=== PATIENT | male | born 1985 | race Caucasian/White ===

== ENCOUNTER 2020-04-22 16:55 | Emergency (ER) | payer SELFPAY ==
[2020-04-22 16:59] VITALS: BP 133/83; PULSE 108; RESP 18; TEMP 37.1; O2SAT 96; BMI 23.3
[2020-04-22] MEDS: tetracaine 0.5% Op Soln 4 mL Btl 1 DROP EYE-RIGHT (18:53)
[2020-04-22] MEDS: fluorescein 1 mg Strip EYE-RIGHT (18:53)
--- NOTE | 2020-04-22 19:28 | W.ED.EYEPROB ---
HPI - Eye Problem General: Chief complaint: Eye Problems Stated complaint: fb in eye x 2 days Time Seen by Provider: 04/22/20 17:29 History of Present Illness: HPI Narrative: This patient is a 35-year-old male presenting with 2 days of right eye pain. The pain started 4 to 5 hours after he had been doing some grinding. He does not recall getting anything in his eye but he wonders if he might have gotten a piece of metal in there. He has not seen anything in the eye. He is got significant redness, drainage, pain. He describes his vision is blurry. He does not wear contacts. He has not had any prior episodes like this. He has had a piece of metal in his eye once. chief complaint: eye pain, eye redness and foreign body (Possible but not certain) Onset (ago): day(s) (2) Onset description: gradual Duration: constant Location: right eye Eye Symptoms: redness, discharge and blurry vision Severity: severe Associated symptoms: Denies fever(s), headache(s), nausea, neck pain or vomiting Review of Systems General: Reports: 10 or more systems reviewed and unremarkable except in HPI and below Const: Denies: fever(s), chills, fatigue or malaise Eyes: Reports: blurry vision, photophobia, eye discomfort and eye redness ENMT: Denies: odynophagia Card: Denies: chest pain or swelling of feet/ankles Resp: Denies: dyspnea, productive cough or non-productive cough GI: Denies: abdominal pain, nausea or vomiting : Denies: flank pain Musc: Denies: neck pain or back pain Skin/Breast: Denies: rash Neuro: Denies: headache(s), numbness in extremities or weakness in extremities Emmett/Lymph: Denies: easy bruising or easy bleeding Physical Exam Const: COMMON NORMALS: no acute distress, patient oriented x3, no limitations and alert GENERAL APPEARANCE: cooperative and comfortable HENMT: HEAD & SCALP: normal to inspection FACE & SINUS: normal facial exam Eye: COMMON NORMALS: Equal, round and reactive pupils present and EOMs intact bilaterally PERIORBITAL: periorbital findings abnormal (Some redness around the right eye) CONJUNCTIVA: Yes conjunctival abnormal (Inflamed, erythematous, thick drainage) positive right CORNEA: Yes corneas normal and fluorescein used PUPIL: Yes Equal, round and reactive pupils present Neck/C-Spine: COMMON NORMALS: supple, no meningeal signs and no JVD Chest: COMMONS NORMALS: normal inspection of the chest Resp: COMMON NORMALS: normal respiratory effort, No use of accessory muscles and clear to auscultation bilaterally AUSCULTATION: clear to auscultation bilaterally Cardio: COMMON NORMALS: no JVD, regular rate, regular rhythm and No murmurs present (Cardio) RATE: regular rate RHYTHM: regular rhythm GI: COMMON NORMALS: Normal to inspection, nondistended, normoactive bowel sounds present, Soft to palpation and non-tender INSPECTION: Yes normal to inspection AUSCULTATION: Yes normoactive bowel sounds PALPATION: Yes Soft to palpation Back/Pelvis: COMMON NORMALS: thoracic and lumbar spine normal to inspection Extremity: COMMON NORMALS: normal to inspection Neuro: COMMON NORMALS: patient oriented x3, moves all extremities, no focal motor deficits and no sensory deficits noted SENSORIUM/ORIENTATION: Yes alert MENINGEAL SIGNS: Yes no meningeal signs Psych: COMMON NORMALS: mental status grossly normal, cooperative and normal affect Skin: COMMON NORMALS: no rashes or lesions noted and turgor normal GENERAL SKIN EXAM: no rashes or lesions noted and turgor normal Course ED course: No foreign body, no corneal abrasion or ulcer. Will treat with pain medicines and oral antibiotics due to concern for periorbital cellulitis. Also clear conjunctivitis so topical antibiotics are also prescribed. Return precautions and need for follow-up discussed. Tetanus is up-to-date. Vital Signs: Vital signs: Vital Signs Temperature 98.7 F 04/22/20 16:59 Pulse Rate 108 H 04/22/20 16:59 Respiratory Rate 18 04/22/20 16:59 Blood Pressure 133/83 04/22/20 16:59 Pulse Oximetry 96 04/22/20 16:59 Discharge Plan Discharge Patient Disposition: Home Condition: Stable Prescriptions: New hydrocodone-acetaminophen 5-325 mg tablet 1 tab PO Q6H PRN (Reason: pain) Qty: 7 RF: 0 Augmentin 875-125 mg tablet 1 tab PO BID Qty: 14 RF: 0 erythromycin 5 mg/gram (0.5 %) ointment 1.25 cm ophthalmic (eye) QID Qty: 1 RF: 0 Discharge Orders: Discharge Order (Routine); Ordered 04/22/20 Ordered By: Amie Hartmann Discharge Diet: Usual diet Discharge Activity: Resume usual activity Patient Instructions: Conjunctivitis (ED), Periorbital Cellulitis in Children (ED) Activity Restrictions/Additional Instructions: Return to the emergency department immediately if worsening symptoms including fever or severe eye pain. Return as well if no improvement in 2 days. Follow-up with an eye doctor for a thorough eye exam. 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
--- NOTE | 2020-04-22 19:47 | PC.NURSE ---
pt d/c'd without receiving meds ordered by ED MD. attempted to contact pt with no success. pt was sent home with prescriptions for same meds and instructed to get thos filled as soon as possible.
--- NOTE | 2020-04-26 09:27 | DCPLANNER ---
art framing manager had message to schedule a follow up appointment for patient with ophthalmology. This case therapist had message from Lashonda Beasley, was unable to reach patient or patients grandmother. art framing manager tried to contact patient at phone number [phone] and it was a busy signal, unable to speak with anyone at this time.
== END 2020-04-22 19:49 | disposition home or self-care (01) ==
PROVIDERS: Emergency Provider Emergency Medicine
DX: H57.11 Ocular pain, right eye (principal)
CPT/HCPCS: 12345; 99281; 99283